=== PATIENT | male | born 1960 | race Caucasian/White ===

== ENCOUNTER 2017-02-03 16:14 | Emergency (ER) | payer MEDICAID, SELFPAY ==
[~2017-02-03] VITALS: Ht 182.9 cm; Wt 82.0 kg
[2017-02-03 21:39] VITALS: BP 116/74
== END 2017-02-03 22:38 | disposition home or self-care (01) ==
LOC: ED 17:32
DX: S09.90XA Unspecified injury of head, initial encounter (principal); F10.120 Alcohol abuse with intoxication, uncomplicated; Y04.0XXA Assault by unarmed brawl or fight, initial encounter; Y93.89 Activity, other specified; Y92.410 Unspecified street and highway as the place of occurrence of the external cause; Y99.8 Other external cause status
CPT/HCPCS: 70450; 70486; 99284

== ENCOUNTER 2017-02-05 16:22 | Emergency (ER) | payer MEDICAID ==
[~2017-02-05] VITALS: Ht 182.9 cm; Wt 82.0 kg
[2017-02-05] MEDS ORDERED: METH500T7 PO (16:39)
[2017-02-05] MEDS ORDERED: FLUO10CA7 PO (16:39)
[2017-02-05] MEDS ORDERED: LORazepam 1MG TABLET PO ONE (17:00)
[2017-02-05] MEDS ORDERED: THIAMINE 100MG TABLET PO ONE (17:00)
[2017-02-05] MEDS ORDERED: LORazepam 1MG TABLET ONE (17:06)
[2017-02-05] MEDS ORDERED: THIAMINE 100MG TABLET ONE (17:06)
[2017-02-05] MEDS ORDERED: SODIUM CHLORIDE 0.9% 1,000ML IVBOLUS ONE (18:30)
[2017-02-05] MEDS ORDERED: SODIUM CHLORIDE FLUSH 10ML SYR IVF ONE (18:30)
[2017-02-05 20:33] VITALS: BP 102/86
== END 2017-02-05 21:24 | disposition home or self-care (01) ==
LOC: ED 18:25
DX: F10.220 Alcohol dependence with intoxication, uncomplicated (principal); F19.10 Other psychoactive substance abuse, uncomplicated
CPT/HCPCS: 36415; 80307; 96360; 96361; 99285; J7030

== ENCOUNTER 2017-02-06 00:31 | Emergency (ER) | payer MEDICAID ==
[~2017-02-06] VITALS: Ht 177.8 cm; Wt 65.3 kg
[~2017-02-06 00:31] MED LIST: FLUO10CA7 PO; METH500T7 PO
[2017-02-06 01:04] VITALS: BP 135/94
== END 2017-02-06 01:14 | disposition left against medical advice (07) ==
LOC: ED 01:00
DX: Z53.21 Procedure and treatment not carried out due to patient leaving prior to being seen by health care provider (principal)

== ENCOUNTER 2017-02-17 02:23 | Emergency (ER) | payer MEDICAID ==
[~2017-02-17] VITALS: Ht 182.9 cm; Wt 75.0 kg
[2017-02-17] MEDS ORDERED: DIPH,PERTUSS(ACELL),TET VAC/PF 0.5 ML IM-VACC ONE ×2 (03:00→03:05)
[2017-02-17] MEDS ORDERED: LIDOCAINE 1%, 20ML SQ ONE (03:00)
[2017-02-17] MEDS ORDERED: LIDOCAINE 1%, 20ML ONE (03:04)
[2017-02-17 08:57] VITALS: BP 132/87
== END 2017-02-17 09:21 | disposition home or self-care (01) ==
LOC: ED 03:55
DX: F10.120 Alcohol abuse with intoxication, uncomplicated (principal); S01.81XA Laceration without foreign body of other part of head, initial encounter; X58.XXXA Exposure to other specified factors, initial encounter; Y93.89 Activity, other specified; Y92.488 Other paved roadways as the place of occurrence of the external cause; Y99.8 Other external cause status
CPT/HCPCS: 12011; 70450; 70486; 72125; 90471; 90715; 99284; J3490

== ENCOUNTER 2017-02-21 08:55 | Emergency (ER) | payer MEDICAID ==
[~2017-02-21] VITALS: Ht 182.9 cm; Wt 77.0 kg
[2017-02-21] MEDS ORDERED: LEVO125T PO (09:12)
[2017-02-21 09:59] LABS: DAU SCREEN DISCLAIMER
[2017-02-21] MEDS ORDERED: THIAMINE 100MG TABLET ONE (10:26)
[2017-02-21] MEDS ORDERED: THIAMINE 100MG TABLET PO ONE (10:30)
[2017-02-21 10:32] LABS: BLOOD UREA NITROGEN 10 mg/dL (7-18); HEMATOCRIT 39.4 % (39.2-51.8); HEMOGLOBIN 13.9 g/dL (13.7-18.0); WHITE BLOOD COUNT 4.1 x10^3/uL (3.4-10)
[2017-02-21 10:37] LABS: ASPARTATE AMINO TRANSFERASE 204 U/L (15-37)
[2017-02-21 10:42] LABS: ACETAMINOPHEN < 2 mcg/mL (10-30)
[2017-02-21 11:29] VITALS: BP 138/79
== END 2017-02-21 11:32 | disposition home or self-care (01) ==
LOC: ED 09:12
DX: F10.129 Alcohol abuse with intoxication, unspecified (principal); E03.9 Hypothyroidism, unspecified
CPT/HCPCS: 36415; 80053; 80307; 80329; 85025; 99284; G0480